=== PATIENT | female | born 2000 | race Caucasian/White ===

== ENCOUNTER 2023-05-22 10:00 | Outpatient (REF) | payer OTHER, SELFPAY ==
--- NOTE | ~2023-05-22 | US_ITS ---
EXAMINATION: US PELVIS CLINICAL INFORMATION: Irregular menses. 23-year-old, LMP unknown. COMPARISON: None available. TECHNIQUE: Ultrasound of the pelvis is performed using both transabdominal and transvaginal transducers along with Doppler. Transvaginal imaging is performed due to inadequate visualization transabdominally. FINDINGS: Uterus: The uterus is anteverted and measures 6.7 x 3.1 x 3.9 cm. The double wall endometrial thickness is 10 mm. The uterus is smooth in contour and has normal myometrial echogenicity. No visible fibroid. Adnexa: Both ovaries are visualized. There is normal color flow to the adnexa. There is no ovarian torsion. There is no pelvic ascites or fluid collection. Right ovary measures 2.1 x 4.1 x 2.5 cm. Estimated volume of 13.6 mL. Multiple subcentimeter ovarian follicles are noted. Left ovary measures 3.9 x 2.0 x 2.9 cm cm. Estimated volume of 15.1 cm. Multiple subcentimeter ovarian follicles are noted. US/US pelvic complete IMPRESSION: * Multiple bilateral ovarian follicles are noted. Recommend correlation with clinical history of polycystic ovarian syndrome. * Normal sonographic appearance of the uterus.
== END 2023-05-22 10:01 | disposition home or self-care (01) ==
LOC: HO.UMASIMG 10:00
PROVIDERS: Visit Provider Family Medicine
DX: N92.6 Irregular menstruation, unspecified (principal); R10.9 Unspecified abdominal pain
CPT/HCPCS: 76830; 76856

== ENCOUNTER 2023-05-27 06:25 | Outpatient (REF) | payer OTHER, SELFPAY ==
--- NOTE | ~2023-05-27 | US_ITS ---
EXAMINATION: US ABDOMEN COMPLETE CLINICAL INFORMATION: Postprandial nausea. COMPARISON: None available. TECHNIQUE: Real-time imaging of the abdominal viscera. FINDINGS: PANCREAS: Obscured by bowel gas. ABDOMINAL AORTA: The proximal, mid, and distal segments are normal in caliber. INFERIOR VENA CAVA: Visualized portions are normal. LIVER: Liver measures 16 cm in span which is within upper limits of normal. The liver contour is normal. Parenchymal echogenicity is normal. No focal hepatic lesion. There is no intrahepatic biliary duct dilatation seen. GALLBLADDER: Normal. The gallbladder is physiologically distended without evidence of stones, sludge, polyps, wall thickening or pericholecystic fluid. COMMON BILE DUCT: Normal in caliber measuring 0.21 cm in diameter. RIGHT KIDNEY: Normal. No hydronephrosis. No renal calculi or focal parenchymal lesions. The kidney measures 9.3 cm in maximum dimension. LEFT KIDNEY: Normal. No hydronephrosis. No renal calculi or focal parenchymal lesions. The kidney measures 10.0 cm in maximum dimension. SPLEEN: The spleen measures 12.6 cm in maximum dimension which is within upper limits of normal. FREE FLUID: None. US/US abdomen complete IMPRESSION: 1. No cholelithiasis or evidence of acute cholecystitis. 2. Spleen and liver are within upper limits of normal in size. 3. Pancreas was obscured by bowel gas.
== END 2023-05-27 06:26 | disposition home or self-care (01) ==
LOC: HO.UMASIMG 06:25
PROVIDERS: Visit Provider Family Medicine
DX: R10.9 Unspecified abdominal pain (principal)
CPT/HCPCS: 76700